=== PATIENT | female | born 2000 | race Caucasian/White ===

== ENCOUNTER 2019-05-28 21:23 | Emergency (ER) | payer BC ==
[~2019-05-28] VITALS: Ht 177.8 cm; Wt 79.5 kg
[2019-05-28 21:45] VITALS: TEMP 98.3
[2019-05-28] MEDS ORDERED: ZOLOFT 50MG50 MG PO (23:17)
[2019-05-28 23:36] LABS: COLLECTION METHOD CLEAN CATCH
[2019-05-28 23:45] LABS: AMORPHOUS CRYSTAL Present /uL; MUCOUS Present /lpf; PH 7 (5-8); SQUAMOUS EPITHELIAL 0-2 /hpf; URINE APPEARANCE Hazy; URINE BACTERIA None Seen /hpf; URINE BILIRUBIN Negative (NEGATIVE); URINE BLOOD Negative (NEGATIVE); URINE COLOR Yellow; URINE GLUCOSE Negative (NEGATIVE); URINE KETONE Negative (NEGATIVE); URINE LEUKOCYTE ESTERASE Negative (NEGATIVE); URINE NITRATE Negative (NEGATIVE); URINE PROTEIN(semi-quant) Negative (NEGATIVE); URINE RBC 0-2 /hpf; URINE UROBILINOGEN Negative (NEGATIVE)
[2019-05-29 00:17] LABS: BASO % 0.3 % (0.0-2.0); EOS # 0.1 (0.0-0.7); EOS % 1.7 % (0-4.0); GRAN # 2.7 (1.4-6.5); GRAN % 44.9 % (42.2-75.2); HEMOGLOBIN 12.3 g/dl (12.0-15.0); LYMPH # 2.7 (1.2-3.4); LYMPH % 44.4 % (20.0-51.0); MEAN CELL VOLUME 91 fl (80.0-95.0); MEAN CORPUSCULAR HEMOGLOBIN 31 pg (26.0-32.0); MEAN CORPUSCULAR HGB CONC 34 g/dl (33.0-37.0); MONO # 0.5 (0.1-0.6); MONO % 8.5 % (1.7-9.3); PLATELET COUNT 175 K/mm3 (130-400); RED BLOOD COUNT 4.02 M/mm3 (4.10-5.30); REDCELL DISTRIBUTION WIDTH-CV 12.1 % (11.5-14.5)
[2019-05-29 00:18] LABS: HEMATOCRIT 36.6 % (35.0-45.0)
[2019-05-29 00:29] LABS: ALANINE AMINOTRANSFERASE 14 U/L (9-52); ALBUMIN 4.4 gm/dL (3.5-5.0); ALKALINE PHOSPHATASE 48 U/L (50-136); ANION GAP 7 mmol/L (7-16); AST,SGOT 21 U/L (15-37); BILIRUBIN,TOTAL 0.6 mg/dL (0.0-1.0); BLOOD UREA NITROGEN 8 mg/dL (7-17); CALCIUM 9.2 mg/dL (8.4-10.2); CARBON DIOXIDE 27 mmol/L (22-30); CHLORIDE 107 mmol/L (98-107); CREATININE, serum 0.71 (0.52-1.25); GLUCOSE 98 mg/dL (74-106); LIPASE 41 U/L (23-300); POTASSIUM 3.9 mmol/L (3.4-5.0); SODIUM 141 mmol/L (137-145); TOTAL PROTEIN 7.3 gm/dL (6.4-8.2)
[2019-05-29 00:51] LABS: C-REACTIVE PROTEIN < 0.5 mg/dL (0.0-0.9)
[2019-05-29] MEDS ORDERED: ZOFRAN ODT4 MG PO (01:31)
[2019-05-29 01:43] VITALS: BP 125/82; PULSE 81
== END 2019-05-29 01:43 | disposition home or self-care (01) ==
LOC: COL.ER 21:23
PROVIDERS: Nurse Practitioner
DX: R10.11 Right upper quadrant pain (principal); F32.9 Major depressive disorder, single episode, unspecified; Z88.1 Allergy status to other antibiotic agents; F41.9 Anxiety disorder, unspecified
CPT/HCPCS: J1170; J2405; J7030

== ENCOUNTER → 2019-06-05 | Outpatient (CLI) | payer BC ==
[~2019-06-05] MED LIST: ZOFRAN ODT4 MG PO; ZOLOFT 50MG50 MG PO
== END ==
LOC: COL.RAD 09:34
DX: R10.11 Right upper quadrant pain (principal)